=== PATIENT | female | born 1960 | race Two or more races ===

== ENCOUNTER 2024-09-27 15:15 | Emergency (ER) | payer MEDICAID, OTHER ==
[~2024-09-27] VITALS: Ht 165.1 cm; Wt 54.7 kg
--- NOTE | 2024-09-27 15:48 | ED.PDOC ---
History of Present Illness(SKN HPI Comments 64 year old female with a past medical history of hypertension, CVA presents to the emergency department with a chief complaint of proceeding wound on LT 2nd digit onset 3 weeks. Patient was seen at urgent care 3 weeks ago for same symptoms, wound was smaller in size, bleeding, was told it was a blister, prescribed antibiotics, she finished them 1 week ago. Patient noticed wound is growing, has bleeding. Patient states there is no pain around it. She has not seen PCP due to insurance issues, states insurance begins on 10/01/24. No other symptoms or modifying factors present at this time. Denies injury, trauma Denies nausea vomiting Denies dizziness headache Denies chest pain shortness of breath Denies pain around finger, numbness or tingling Time Seen by MD: 15:35 History of Present Illness: Medications, Allergies Allergies: Coded Allergies: NO KNOWN ALLERGIES (Unverified , 09/27/24) Information Source: Patient, Relative Mode of Arrival: Ambulatory Severity: Moderate Timing: Weeks Duration: Since onset Prehospital treatment: Other (antibiotics) Location: Other (LT 2nd digit) Mechanism: Spontaneous Onset Developed: Other Past Medical History PAST MEDICAL HISTORY: CVA, HTN Surgical History: Denies all surgeries STRATEGIC ACCOUNT EXECUTIVE History: No Pertinent STRATEGIC ACCOUNT EXECUTIVE History Family History Family History: Reviewed,noncontributory to illness, No family hx of Cancer, No family hx of DM, No family hx of Heart cary, No family hx of HTN, No family hx ofKidney cary, No family hx of Liver cary, No family hx of Lung cary, No family hx of Stroke Social History Smoker: Non-Smoker Alcohol: Denies ETOH Use Drugs: Denies Drug Use Lives In: Home All Other Systems: Reviewed and Negative (as per HPI) Physical Exam General Appearance: Normal HEENT: Normal ENT Inspection, Pharynx Normal, TMs Normal Neck: Full Range of Motion, Non-Tender, Normal, Normal Inspection Respiratory: Chest Non-Tender, Lungs Clear, No Accessory Muscle Use, No Respiratory Distress, Normal Breath Sounds Cardiovascular: No Edema, No JVD, No Murmur, No Gallop, Normal Peripheral Pulses, Regular Rate/Rhythm Breast Exam: Deferred Gastrointestinal: No Organomegaly, Non Tender, No Pulsatile Mass, Normal Bowel Sounds, Soft Genitalia: Deferred Pelvic: Deferred Rectal: Deferred Extremities: No calf tenderness, Normal capillary refill, Normal inspection, Normal range of motion, Non-tender, No pedal edema Musculoskeletal : Apperance: Normal Neurologic: Alert, rail flaw detector operator II-XII nml as Tested, No Motor Deficits, Normal Affect, Normal Mood, No Sensory Deficits Cerebellar Function: Normal Reflexes: Normal Skin: Dry, Normal Color, Warm Lymphatic: No Adenopathy Was a procedure done? Was a procedure done?: No Differential Diagnosis (INTG) Differential Diagnosis: Other X-Ray, Labs, Meds, VS Vital Signs Date Time Temp Pulse Resp B/P (MAP) Pulse Ox O2 Delivery O2 Flow Rate FiO2 09/27/24 16:07 98.7 66 18 139/82 (101) 99 98.7 X-Ray, Labs, Meds, VS Comment 64 year old female with a past medical history of hypertension, CVA presents to the emergency department with a chief complaint of proceeding wound on LT 2nd digit onset 3 weeks. Patient arrives alert and oriented, ABC's intact, afebrile, vital signs stable, saturating well in room air Patient is stable for discharge at this time. External notes reviewed. Test results and diagnostic imaging interpreted. All diagnostic findings, discharge care, education and instructions provided Follow-up with PCP in 2 to 3 days. Will likely need biopsy Patient verbalized understanding and agreed to treatment plan Vital signs stable, afebrile, no acute distress noted Patient ambulatory with strong steady gait Advised to return precautions for any new or worsening symptoms, return to ER immediately for re-evaluation Patient is aware that the purpose of this visit was for an acute medical emergency requiring emergent stabilization. Chronic conditions, including malignancies have not been ruled out. Patient is instructed to follow up with PCP as directed and discharge instructions for continued care and workup. If unable to arrange follow-up, patient is to return to the emergency department for reassessment. Patient (parent or legal guardian if applicable) was given verbal and written discharge instructions and acknowledges understanding. Additional MDM Review of External, Non-ED records: External records reviewed. Discussion with independent historian (EMS, family) history obtained from the patient/parents (if applicable) at bedside Chronic conditions affecting care: None Social determinants of health affecting care: None Consideration of admission (observation or admission): I considered escalation of care to admission for this patient, however given the reassuring workup, the patient is safe for outpatient management. Discussion with the Radiology: No Tests considered but not performed: Prescription medication considered but not given: 12 lead EKG interpretation: Time of 1ST Reevaluation: 16:05 Reevaluation 1ST: Improved Patient Education/Counseling: Diagnosis, Treatment Family Education/Counseling: Diagnosis, Treatment SEPSIS Sepsis Screen Vital Signs Date Time Temp Pulse Resp B/P (MAP) Pulse Ox O2 Delivery O2 Flow Rate FiO2 09/27/24 16:07 98.7 66 18 139/82 (101) 99 98.7 Departure 1 Departure Time of Disposition: 15:54 Impression: Primary Impression: Pyogenic granuloma Additional Impression: Unknown skin lesion Disposition: 01 HOME / SELF CARE / HOMELESS Condition: Fair Critical Care Note Critical Care Time?: No Stability Stability form required: No Heart Score Heart Score: Heart Score Response (Comments) Value History N/A 0 EKG N/A 0 Age N/A 0 Risk Factors N/A 0 Troponin N/A 0 Total 0 I personally scribed for HIRAM FELICIANO NP ([email or web address]) on 09/27/24 at 15:48. Electronically submitted by Olivia Aleman ([email or web address]). HIRAM FELICIANO NP Sep 27, 2024 15:48
[2024-09-27 16:07] VITALS: BP 139/82; PULSE 66; RESP 18; TEMP 98.7; O2SAT 99
== END 2024-09-27 18:52 | disposition home or self-care (01) ==
LOC: ER 15:15
DX: L98.0 Pyogenic granuloma (principal); L98.9 Disorder of the skin and subcutaneous tissue, unspecified; I10 Essential (primary) hypertension; Z86.73 Personal history of transient ischemic attack (TIA), and cerebral infarction without residual deficits